=== PATIENT | male | born 1950 | race Caucasian/White ===

== ENCOUNTER 2017-07-21 15:00 | Outpatient (CLI) | payer MEDICARE, OTHER | END 2017-07-21 15:01 | disposition short-term general hospital (02) | LOC: EMS 15:00 | PROVIDERS: ATTEND Surgery | DX: R07.9 Chest pain, unspecified (principal); R06.02 Shortness of breath; R50.9 Fever, unspecified | CPT/HCPCS: A0170; A0425; A0427 ==

== ENCOUNTER 2018-04-30 10:32 | Outpatient (CLI) | payer MEDICARE, OTHER ==
[2018-04-30] MEDS ORDERED: REGADENOSON 0.4 MG/5 ML SYRINGE IVP ONE ×2 (12:18→13:47)
--- NOTE | 2018-04-30 15:42 | CARDIAC PROCEDURE NOTE ---
DATE OF SERVICE: 04/30/2018 Physician: Princess Manzanares MD, [facility] INDICATION: CAD. CARDIAC RISK FACTORS: Male gender, advanced age, family history of heart disease, hypertension, ex-smoker. There is a history of prior coronary artery disease and prior CO. SUMMARY: After signing informed consent, the patient underwent a Lexiscan pharmaceutical stress test with nuclear myocardial perfusion imaging. Resting heart rate 53, peak heart rate 66. Resting blood pressure 128/62, peak blood pressure 134/75. Lexiscan was infused per protocol. The patient developed brief and minimal chest pressure, he had no shortness of breath. BASELINE ELECTROCARDIOGRAM: Sinus bradycardia, rate 50, LAFB, left atrial enlargement, T waves flat in V4 through V6. ELECTROCARDIOGRAM AT PEAK: No new ST or T-wave changes. SUMMARY 1. Abnormal resting electrocardiogram. 2. No ischemic electrocardiogram changes by EKG criteria using pharmaceutical stress testing. 3. Nuclear images reported separately. cc: MD Ronnie Guevara M.D. TD: 04/30/2018 15:26 MTDD
--- NOTE | 2018-05-01 08:51 | Nuclear Medicine Report ---
Reason: CAD Procedure Date: 04/30/2018 Accession Number: [id number] / [id number] Procedure: NM - Myocardial Perfusion STR/RST CPT Code: FULL RESULT: EXAM: SINGLE-ISOTOPE PHARMACOLOGICAL STRESS TEST WITH REGADENOSON. SINGLE-ISOTOPE AND ONE-DAY REST/STRESS MYOCARDIAL PERFUSION SCANS WITH TOMOGRAPHIC IMAGING, QUANTITATIVE ANALYSIS, WALL MOTION ANALYSIS AND CALCULATION OF EJECTION FRACTION. EXAM DATE: 04/30/2018 06:04 PM. CLINICAL HISTORY: Coronary artery disease. COMPARISON: None available. TECHNIQUE: After the intravenous administration of 10.3 mCi of Tc-99m sestamibi, a rest myocardial perfusion scan was done with tomography. Motion correction was applied when appropriate. After an appropriate delay, pharmacological stress was performed with the infusion of 0.4 mg regadenoson per protocol. According to protocol, 44.6 mCi of Tc-99m sestamibi was injected for stress myocardial perfusion scan. Motion correction was applied when appropriate. Gated tomographic images were obtained for wall motion analysis and computation of left ventricular ejection fraction. FINDINGS: There is a small, moderate severity reversible defect in the distal anteroseptal wall. There is a larger severe partially fixed and partially reversible defect involving the inferior and inferolateral casey. Computer analysis: Summed stress score 23 Summed rest score 17 Summed difference score 4 Wall motion analysis demonstrates hypokinesis of the inferolateral wall.. The left ventricular end-diastolic volume is 106 cc. The left ventricular end-systolic volume is 50 cc. The left ventricular ejection fraction is calculated to be 53%. IMPRESSION: 1. Small reversible defect in the distal anteroseptal wall. Larger, partially fixed and partially reversible defect in the inferior and inferolateral casey. 2. Left ventricular ejection fraction of 53%. 3. Inferolateral wall hypokinesis. 4. Normal left ventricular cavity size, no change with stress. 5. Based on computer analysis, severely abnormal study with mild ischemia. RADIA
== END 2018-04-30 10:33 | disposition home or self-care (01) ==
LOC: DI 10:32
PROVIDERS: ATTEND Internal Medicine Cardiovascular Disease
DX: I25.10 Atherosclerotic heart disease of native coronary artery without angina pectoris (principal); I25.2 Old myocardial infarction; R94.31 Abnormal electrocardiogram [ECG] [EKG]; I10 Essential (primary) hypertension; Z87.891 Personal history of nicotine dependence
CPT/HCPCS: 78452; 93017; A9500; J2785

== ENCOUNTER 2018-07-17 10:54 | Outpatient (CLI) | payer MEDICARE, OTHER ==
[2018-07-17 11:11] LABS: BASOPHILS # (AUTO) 0.1 10^3/uL (0.0-0.1); BASOPHILS % (AUTO) 1.8 %; EOSINOPHILS # (AUTO) 0.2 10^3/uL (0.0-0.7); HGB - HEMOGLOBIN 17.1 g/dL (14.0-18.0); LYMPHOCYTES # (AUTO) 1.6 10^3/uL (1.5-3.5); LYMPHOCYTES % (AUTO) 20.3 %; MEAN CORPUSCULAR HEMOGLOBIN 32.5 pg (27.0-31.0); MEAN CORPUSCULAR HGB CONC 35.2 g/dL (32.0-36.0); MEAN CORPUSCULAR VOLUME 92.4 fL (80.0-94.0); MEAN PLATELET VOLUME 9.2 fL (7.4-11.4); MONOCYTES # (AUTO) 0.8 10^3/uL (0.0-1.0); NEUTROPHILS # (AUTO) 5.2 10^3/uL (1.5-6.6); NEUTROPHILS % (AUTO) 65.9 %; PLT - PLATELET COUNT 198 10^3/uL (130-450); RED BLOOD COUNT 5.25 10^6/uL (4.70-6.10); RED CELL DISTRIBUTION WIDTH 13.6 % (12.0-15.0); WHITE BLOOD COUNT 7.9 x10^3/uL (4.8-10.8)
[2018-07-17 11:15] LABS: CREATININE 1.3 mg/dL (0.6-1.2)
== END 2018-07-17 10:55 | disposition home or self-care (01) ==
LOC: LAB 10:54
PROVIDERS: ATTEND Internal Medicine Cardiovascular Disease
DX: I25.10 Atherosclerotic heart disease of native coronary artery without angina pectoris (principal)
CPT/HCPCS: 36415; 80048; 85025

== ENCOUNTER 2018-08-14 10:31 | Outpatient (CLI) | payer MEDICARE, OTHER ==
[2018-08-14 10:41] LABS: BASOPHILS # (AUTO) 0.1 10^3/uL (0.0-0.1); EOSINOPHILS # (AUTO) 0.2 10^3/uL (0.0-0.7); EOSINOPHILS % (AUTO) 2.9 %; HGB - HEMOGLOBIN 16.8 g/dL (14.0-18.0); LYMPHOCYTES # (AUTO) 1.6 10^3/uL (1.5-3.5); LYMPHOCYTES % (AUTO) 24.4 %; MEAN CORPUSCULAR HEMOGLOBIN 31.8 pg (27.0-31.0); MEAN CORPUSCULAR HGB CONC 33.7 g/dL (32.0-36.0); MEAN CORPUSCULAR VOLUME 94.6 fL (80.0-94.0); MEAN PLATELET VOLUME 9.6 fL (7.4-11.4); MONOCYTES # (AUTO) 0.6 10^3/uL (0.0-1.0); MONOCYTES % (AUTO) 9.5 %; NEUTROPHILS % (AUTO) 62.2 %; PLT - PLATELET COUNT 179 10^3/uL (130-450); RED BLOOD COUNT 5.27 10^6/uL (4.70-6.10); WHITE BLOOD COUNT 6.5 x10^3/uL (4.8-10.8)
== END 2018-08-14 10:32 | disposition home or self-care (01) ==
LOC: LAB 10:31
PROVIDERS: ATTEND Internal Medicine Cardiovascular Disease
DX: I25.10 Atherosclerotic heart disease of native coronary artery without angina pectoris (principal)
CPT/HCPCS: 36415; 85025

== ENCOUNTER 2019-12-11 12:02 | Outpatient (CLI) | payer MEDICARE, OTHER ==
[2019-12-11 15:03] LABS: BASOPHILS % (AUTO) 0.4 %; EOSINOPHILS # (AUTO) 0.1 10^3/uL (0.0-0.7); EOSINOPHILS % (AUTO) 2.2 %; HGB - HEMOGLOBIN 17.8 g/dL (14.0-18.0); LYMPHOCYTES # (AUTO) 1.5 10^3/uL (1.5-3.5); LYMPHOCYTES % (AUTO) 27.9 %; MEAN CORPUSCULAR HEMOGLOBIN 32.9 pg (27.0-31.0); MEAN CORPUSCULAR HGB CONC 34.2 g/dL (32.0-36.0); MEAN CORPUSCULAR VOLUME 96.3 fL (80.0-94.0); MEAN PLATELET VOLUME 11.8 fL (7.4-11.4); MONOCYTES # (AUTO) 0.6 10^3/uL (0.0-1.0); MONOCYTES % (AUTO) 11.9 %; NEUTROPHILS # (AUTO) 3.1 10^3/uL (1.5-6.6); NEUTROPHILS % (AUTO) 57.4 %; PLT - PLATELET COUNT 173 10^3/uL (130-450); RED BLOOD COUNT 5.41 10^6/uL (4.70-6.10); RED CELL DISTRIBUTION WIDTH 13.1 % (12.0-15.0); WHITE BLOOD COUNT 5.4 x10^3/uL (4.8-10.8)
== END 2019-12-11 12:03 | disposition home or self-care (01) ==
LOC: LAB.S 12:02
PROVIDERS: ATTEND Orthopaedic Surgery
DX: Z01.812 Encounter for preprocedural laboratory examination (principal)
CPT/HCPCS: 36415; 85025

== ENCOUNTER 2020-03-10 14:03 | Outpatient (CLI) | payer MEDICARE, OTHER ==
[2020-03-10 20:51] LABS: BASOPHILS % (AUTO) 0.6 %; EOSINOPHILS # (AUTO) 0.2 10^3/uL (0.0-0.7); EOSINOPHILS % (AUTO) 2.4 %; HGB - HEMOGLOBIN 17.5 g/dL (14.0-18.0); LYMPHOCYTES # (AUTO) 1.8 10^3/uL (1.5-3.5); LYMPHOCYTES % (AUTO) 26.2 %; MEAN CORPUSCULAR HEMOGLOBIN 31.9 pg (27.0-31.0); MEAN CORPUSCULAR HGB CONC 32.6 g/dL (32.0-36.0); MEAN PLATELET VOLUME 11.6 fL (7.4-11.4); MONOCYTES # (AUTO) 0.7 10^3/uL (0.0-1.0); MONOCYTES % (AUTO) 10.8 %; NEUTROPHILS % (AUTO) 59.7 %; PLT - PLATELET COUNT 213 10^3/uL (130-450); RED BLOOD COUNT 5.48 10^6/uL (4.70-6.10); RED CELL DISTRIBUTION WIDTH 13.4 % (12.0-15.0); WHITE BLOOD COUNT 6.7 x10^3/uL (4.8-10.8)
[2020-03-10 20:59] LABS: CALCIUM 8.8 mg/dL (8.5-10.3); CREATININE 1.3 mg/dL (0.6-1.2)
== END 2020-03-10 14:04 | disposition home or self-care (01) ==
LOC: LAB.S 14:03
PROVIDERS: ATTEND Orthopaedic Surgery
DX: Z01.812 Encounter for preprocedural laboratory examination (principal)
CPT/HCPCS: 36415; 80048; 85025

== ENCOUNTER 2021-03-02 14:21 | Outpatient (CLI) | payer MEDICARE, OTHER | END 2021-03-02 14:22 | disposition critical access hospital (66) | LOC: EMS 14:21 | DX: R42 Dizziness and giddiness (principal); H53.8 Other visual disturbances | CPT/HCPCS: A0425; A0429 ==

== ENCOUNTER 2021-03-02 15:03 | Emergency (ER) | payer MEDICARE, OTHER ==
--- NOTE | 2021-03-02 15:30 | ED Physician Documentation ---
History of Present Illness - Stated complaint Stated Complaint: DIZZINESS - Chief complaint Chief Complaint: Neuro - Additonal information Additional information: 70-year-old male presents the emergency department for evaluation of a near syn copal episode. He reports that he was simply at home and began to feel lightheaded and thought that he may pass out. The rule became very blurry to him. He is unable to quantify how long the symptoms lasted. He states he has had 2 similar episodes but again cannot quantify a timeline. He does report a history of diastolic heart failure. At baseline he has chronic lower extremity edema that he says waxes and wanes and is no significant difference from his normal. He denies that he was having chest pain or shortness of air. He denies any headache. Right now he states that he feels as good as he thinks he could. Review of Systems Constitutional: reports: Reviewed and negative Eyes: reports: Decreased vision Nose: reports: Reviewed and negative Throat: reports: Reviewed and negative Cardiac: reports: Reviewed and negative Respiratory: denies: Dyspnea, Cough GI: reports: Reviewed and negative : reports: Reviewed and negative Skin: reports: Reviewed and negative Musculoskeletal: reports: Reviewed and negative Neurologic: reports: Near syncope. denies: Syncope, Seizure, Confused, Headach e, Head injury, LOC Psychiatric: reports: Reviewed and negative PD PAST MEDICAL HISTORY - Past Medical History Cardiovascular: Hypertension, High cholesterol, Coronary artery disease, [place] Respiratory: None Endocrine/Autoimmune: None GI: None : None HEENT: None Psych: Claustrophobia Musculoskeletal: Osteoarthritis Derm: None - Past Surgical History General: Bowel surgery Ortho: Arthroscopic surgery Cardiovascular: Coronary stent, Cardiac catheterization - Present Medications Home Medications: Ambulatory Orders Medication Instructions Recorded Confirmed Colchicine [Colcrys] 0.6 mg PO ONCE PRN 01/27/13 03/02/21 Testosterone Cypionate 100 mg IM ONCE 01/27/13 03/02/21 [Depo-Testosterone] allopurinoL [Allopurinol] 300 mg PO DAILY 01/27/13 03/02/21 atenoloL [Tenormin] 50 mg PO BID 01/27/13 03/02/21 Tadalafil [Cialis] 20 mg PO DAILY 12/14/14 03/02/21 Aspirin Chewable [St [place] 81 mg PO DAILY 03/02/21 03/02/21 Aspirin] Furosemide [Lasix] 20 mg PO DAILY 03/02/21 03/02/21 - Allergies Allergies/Adverse Reactions: Allergies Allergy/AdvReac Type Severity Reaction Status Date / Time Fish Containing Products Allergy Severe anaphylaxis Verified 03/02/21 15:17 adhesive Allergy Mild Rash Verified 03/02/21 15:17 penicillin G Allergy Unknown UNKNOWN Verified 03/02/21 15:17 simvastatin Allergy Unknown UNKNOWN Verified 03/02/21 15:17 codeine [Codeine] AdvReac Intermediate UNKNOWN Verified 03/02/21 15:17 - Social History Does the pt smoke?: No Smoking Status: Never smoker Does the pt drink ETOH?: Yes Does the pt have substance abuse?: No - Immunizations Immunizations are current?: Yes PD ED PE EXPANDED - General General: Alert, No acute distress, Well developed/nourished, Other (Obese) - Neck Neck: Supple w/out meningeal sx. No: Adenopathy - Cardiac Cardiac: Regular Rate, Radial strong equal, Pedal strong equal, Cap refill < 2 sec - Respiratory Respiratory: Clear to ausultation molly. No: Distress, Labored - Abdomen Abdomen: Normal Bowel sounds, Surgical scars (Extensive surgical scarring of the abdomen. Multiple palpated hernias are easily reduced). No: Tender to palpation - Derm Derm: Normal color, Warm and dry. No: Rash - Neuro Neuro: Alert and Oriented X 3, CNII-XII intact - GCS Eye Opening: Spontaneous Motor: Obeys Commands Verbal: Oriented Total: 15 Results - Vitals Vitals: Vital Signs - 24 hr 03/02/21 15:11 Temperature 36.4 C L Heart Rate 61 Respiratory 16 Rate Blood Pressure 166/92 H O2 Saturation 100 Oxygen O2 Source Room air - EKG (time done) 1527 Rate: Rate (enter#) (59) Rhythm: NSR [place]: LAD Intervals: Normal [place]. No: Prolonged QT QRS: Normal Ischemia: Q waves (anterior) Compare to prior EKG: Unchanged from prior EKG Computer interpretation: Agree with computer - Labs Labs: Laboratory Tests 03/02/21 03/02/21 03/02/21 16:37 16:37 16:37 WBC 7.2 RBC 6.01 Hgb 19.2 H Hct 56.8 H MCV 94.5 H MCH 31.9 H MCHC 33.8 RDW 13.4 Plt Count 157 MPV 11.1 Neut # (Auto) 5.3 Lymph # (Auto) 1.2 L [place] # (Auto) 0.5 Eos # (Auto) 0.1 Baso # (Auto) 0.0 Absolute Nucleated RBC 0.00 Nucleated RBC % 0.0 PT 11.7 INR 1.1 Sodium 136 Potassium 4.2 Chloride 97 L Carbon Dioxide 27 Anion Gap 12.0 BUN 23 H Creatinine 1.3 H Estimated GFR (MDRD) 55 L Glucose 119 H Calcium 9.4 Total Bilirubin 0.9 AST 24 ALT 25 Alkaline Phosphatase 77 Troponin I High Sens B-Natriuretic Peptide Total Protein 7.6 Albumin 4.5 Globulin 3.1 Albumin/Globulin Ratio 1.5 Lipase 34 03/02/21 03/02/21 16:37 16:37 WBC RBC Hgb Hct MCV MCH MCHC RDW Plt Count MPV Neut # (Auto) Lymph # (Auto) [place] # (Auto) Eos # (Auto) Baso # (Auto) Absolute Nucleated RBC Nucleated RBC % PT INR Sodium Potassium Chloride Carbon Dioxide Anion Gap BUN Creatinine Estimated GFR (MDRD) Glucose Calcium Total Bilirubin AST ALT Alkaline Phosphatase Troponin I High Sens 9.2 B-Natriuretic Peptide 85 Total Protein Albumin Globulin Albumin/Globulin Ratio Lipase - Rads (name of study) CXR Radiology: Final report received (No acute cardiopulmonary pathology) PD MEDICAL DECISION MAKING - ED course Complexity details: reviewed results, re-evaluated patient, d/w patient ED course: Well-appearing 70-year-old male who has a history of diastolic heart failure presents the emergency department for evaluation of a near syncopal episode today. He did not faint. He reports at least 2 previous episodes in the past. A screening EKG is nonischemic. High-sensitivity troponin is negative. He has baseline mild chronic kidney disease. However of note is a fairly elevated hemoglobin of 19.2. His baseline hemoglobins have ranged from 17.5-19. There has been no apparent work-up for this pancytopenia. Patient is a former smoker though he quit more than 20 years ago he has never had a work-up for his elevated hemoglobin in the past. I have advised patient to have close follow-up with Dr. Ulloa. He would benefit from referral to a solar installer technician. He may also benefit from an outpatient Holter monitor and echocardiogram with his furniture dipper. If at any point he has worsening symptoms, develop shortness of air has fainting episodes that he is to return immediately to the ER for a second evaluation. Departure - Departure Disposition: 01 Home, Self Care Clinical Impression: Near syncope, Elevated hemoglobin Condition: Stable Record reviewed to determine appropriate education?: Yes Follow-Up: Radha Ulloa MD [Provider Admit Priv/Credential] - Comments: Osiel wolf were seen in the emergency department today for a near fainting episode. We did find that your hemoglobin was rather elevated today at 19.2. However your baseline hemoglobin seems to range between 17 and 19. It is important that you discuss this with Dr. Ulloa. You may benefit from outpatient referral to a solar installer technician or blood doctor. You may also benefit from iron testing. With regards to the near fainting episode with your history of heart failure having a follow-up echocardiogram or Holter monitor should be indicated. If at any point you have worsening symptoms, you have chest pain or feel like you are going to faint again then you should return immediately to the ER for a second evaluation.
--- NOTE | 2021-03-02 15:36 | XRAY Report ---
PROCEDURE: Chest 1 View X-Ray INDICATIONS: Chest Pain TECHNIQUE: One view of the chest was acquired. COMPARISON: 08/09/2012. FINDINGS: Surgical changes and devices: None. Lungs and pleura: No pleural effusions or pneumothorax. Lungs are clear. Mediastinum: Mediastinal contours appear normal. Heart size is normal. Bones and chest wall: No suspicious bony lesions. Overlying soft tissues appear unremarkable. IMPRESSION: No acute cardiopulmonary pathology. Reviewed by: Tony Salazar MD on 03/02/2021 3:35 PM PDT Approved by: Tony Salazar MD on 03/02/2021 3:35 PM PDT Station ID: [id number]
[2021-03-02 16:42] LABS: BASOPHILS % (AUTO) 0.4 %; EOSINOPHILS # (AUTO) 0.1 10^3/uL (0.0-0.7); EOSINOPHILS % (AUTO) 1.1 %; HCT - HEMATOCRIT 56.8 % (42.0-52.0); HGB - HEMOGLOBIN 19.2 g/dL (14.0-18.0); LYMPHOCYTES # (AUTO) 1.2 10^3/uL (1.5-3.5); LYMPHOCYTES % (AUTO) 17.2 %; MEAN CORPUSCULAR HEMOGLOBIN 31.9 pg (27.0-31.0); MEAN CORPUSCULAR HGB CONC 33.8 g/dL (32.0-36.0); MEAN CORPUSCULAR VOLUME 94.5 fL (80.0-94.0); MEAN PLATELET VOLUME 11.1 fL (7.4-11.4); MONOCYTES # (AUTO) 0.5 10^3/uL (0.0-1.0); MONOCYTES % (AUTO) 7.5 %; NEUTROPHILS # (AUTO) 5.3 10^3/uL (1.5-6.6); NEUTROPHILS % (AUTO) 73.5 %; PLT - PLATELET COUNT 157 10^3/uL (130-450); RED BLOOD COUNT 6.01 10^6/uL (4.70-6.10); RED CELL DISTRIBUTION WIDTH 13.4 % (12.0-15.0); WHITE BLOOD COUNT 7.2 x10^3/uL (4.8-10.8)
[2021-03-02 16:48] LABS: INR 1.1 (0.8-1.2); PT - PROTHROMBIN TIME 11.7 secs (9.9-12.6)
[2021-03-02 16:55] LABS: ALBUMIN 4.5 g/dL (3.2-5.5); ALBUMIN/GLOBULIN RATIO 1.5 (1.0-2.2); BILIRUBIN,TOTAL 0.9 mg/dL (0.2-1.0); CALCIUM 9.4 mg/dL (8.5-10.3); CREATININE 1.3 mg/dL (0.6-1.2); POTASSIUM 4.2 mmol/L (3.5-5.0); TOTAL PROTEIN 7.6 g/dL (6.7-8.2)
[2021-03-02 17:48] VITALS: BP 152/72
== END 2021-03-02 18:01 | disposition home or self-care (01) ==
LOC: EDUNIT# → ED 15:03
DX: R55 Syncope and collapse (principal); D58.2 Other hemoglobinopathies; Z87.891 Personal history of nicotine dependence
CPT/HCPCS: 36415; 80053; 83690; 83880; 84484; 85025; 85610; 93005; 99283; 99284

== ENCOUNTER 2021-12-11 08:00 | Outpatient (CLI) | payer MEDICARE, OTHER ==
[2021-12-11 15:42] LABS: BASOPHILS # (AUTO) 0.1 10^3/uL (0.0-0.1); BASOPHILS % (AUTO) 0.7 %; EOSINOPHILS # (AUTO) 0.2 10^3/uL (0.0-0.7); EOSINOPHILS % (AUTO) 2.9 %; HCT - HEMATOCRIT 55.5 % (42.0-52.0); LYMPHOCYTES # (AUTO) 2.2 10^3/uL (1.5-3.5); LYMPHOCYTES % (AUTO) 30.5 %; MEAN CORPUSCULAR HEMOGLOBIN 32.4 pg (27.0-31.0); MEAN CORPUSCULAR HGB CONC 34.2 g/dL (32.0-36.0); MEAN CORPUSCULAR VOLUME 94.5 fL (80.0-94.0); MEAN PLATELET VOLUME 12.2 fL (7.4-11.4); MONOCYTES # (AUTO) 0.7 10^3/uL (0.0-1.0); MONOCYTES % (AUTO) 9.1 %; NEUTROPHILS # (AUTO) 4.2 10^3/uL (1.5-6.6); NEUTROPHILS % (AUTO) 56.5 %; PLT - PLATELET COUNT 159 10^3/uL (130-450); RED BLOOD COUNT 5.87 10^6/uL (4.70-6.10); RED CELL DISTRIBUTION WIDTH 13.4 % (12.0-15.0); WHITE BLOOD COUNT 7.4 x10^3/uL (4.8-10.8)
[2021-12-11 15:58] LABS: ALBUMIN 4.1 g/dL (3.2-5.5); ALBUMIN/GLOBULIN RATIO 1.4 (1.0-2.2); ALKALINE PHOSPHATASE 83 IU/L (42-121); ALT ALANINE AMINOTRANSFERASE 31 IU/L (10-60); AST ASPARTATE AMINOTRANSFERASE 28 IU/L (10-42); BUN - BLOOD UREA NITROGEN 26 mg/dL (6-20); CALCIUM 9.4 mg/dL (8.5-10.3); CARBON DIOXIDE - CO2 27 mmol/L (21-32); CHLORIDE 99 mmol/L (101-111); CHOL/HDL RATIO 4.3 (<5.0); CHOLESTEROL 169 mg/dL; CREATININE 1.4 mg/dL (0.6-1.2); GFR - MDRD 50 (>89); GLUCOSE 119 mg/dL (70-100); HDL CHOLESTEROL 39 mg/dL; LDL CHOLESTEROL,CALCULATED 94 mg/dL; LDL/HDL RATIO 2.4 (<3.6); POTASSIUM 3.9 mmol/L (3.5-5.0); SODIUM 134 mmol/L (135-145); TRIGLYCERIDES 182 mg/dL; URIC ACID 9.4 mg/dL (2.6-7.2); VLDL CHOLESTEROL 36 mg/dL
[2021-12-11 16:06] LABS: PSA TOTAL 0.537 ng/mL (0.000-2.000)
[2021-12-11 18:54] LABS: ESTIMATED AVERAGE GLUCOSE 134 mg/dL (70-100); HEMOGLOBIN A1c% 6.3 % (4.27-6.07)
== END 2021-12-11 23:59 | disposition home or self-care (01) ==
LOC: LAB.R 08:00
PROVIDERS: ATTEND Internal Medicine
DX: Z00.00 Encounter for general adult medical examination without abnormal findings (principal); I13.0 Hypertensive heart and chronic kidney disease with heart failure and stage 1 through stage 4 chronic kidney disease, or unspecified chronic kidney disease; I50.30 Unspecified diastolic (congestive) heart failure; N18.9 Chronic kidney disease, unspecified; R73.9 Hyperglycemia, unspecified; I25.10 Atherosclerotic heart disease of native coronary artery without angina pectoris; K57.92 Diverticulitis of intestine, part unspecified, without perforation or abscess without bleeding; K29.70 Gastritis, unspecified, without bleeding; M10.9 Gout, unspecified; H91.90 Unspecified hearing loss, unspecified ear; E29.1 Testicular hypofunction; M19.90 Unspecified osteoarthritis, unspecified site; Z86.010 Personal history of colon polyps
CPT/HCPCS: 80053; 80061; 83036; 83721; 84153; 84403; 84443; 84550; 85025

== ENCOUNTER 2022-06-14 06:15 | Day surgery (SDC) | payer MEDICARE, OTHER ==
[2022-06-14] MEDS ORDERED: LACTATED RINGERS 1,000 ML IV ONE (07:09)
[2022-06-14] MEDS ORDERED: PROPOFOL 500 MG/50 ML 500 MG/50 ML VIAL ONE (07:47)
[2022-06-14] MEDS ORDERED: LACTATED RINGERS 800 ML IV ONE (08:22)
--- NOTE | 2022-06-14 08:24 | ANESTHESIA POST OP EVALUATION ---
Anesthesia Post Eval - Post Anesthesia Eval Vitals: Last Vital Signs Temp 36.1 C L 06/14/22 08:18 Pulse 62 06/14/22 08:18 Resp 16 06/14/22 08:18 BP 126/54 L 06/14/22 08:18 Pulse Ox 97 06/14/22 08:18 O2 Flow Rate CV Function Including HR & BP: Stable Pain Control: Satisfactory Nausea & Vomiting: Negative Mental Status: Baseline Respiratory Status: Airway Patent Hydration Status: Satisfactory Anesthesia Complications: None
--- NOTE | 2022-06-14 08:24 | ANESTHESIA ---
Pre-Anesthesia VS, & Labs - Diagnosis hx of colon resection , diverticultis - Procedure colonoscopy Vital Signs: Temp Pulse Resp BP Pulse Ox O2 Flow Rate 36.1 C L 62 16 126/54 L 97 06/14/22 08:18 06/14/22 08:18 06/14/22 08:18 06/14/22 08:18 06/14/22 08:18 Height: 6 ft Weight (kg): 137.6 kg Body Mass Index: 41.1 BMI Classification: Morbidly Obese - NPO >8 hours Home Medications and Allergies Home Medications: Ambulatory Orders Ezetimibe [Zetia] 10 mg PO DAILY 06/13/22 Colchicine [Colcrys] 0.6 mg PO ONCE PRN 01/27/13 Testosterone Cypionate [Depo-Testosterone] 100 mg IM ONCE 01/27/13 allopurinoL [Allopurinol] 150 mg PO DAILY 01/27/13 atenoloL [Tenormin] 25 mg PO BID 01/27/13 Tadalafil [Cialis] 10 mg PO DAILY 12/14/14 Furosemide [Lasix] 20 mg PO DAILY 03/02/21 Ezetimibe [Zetia] 10 mg PO DAILY 06/13/22 Allergies/Adverse Reactions: Allergies Allergy/AdvReac Type Severity Reaction Status Date / Time Fish Containing Products Allergy Severe anaphylaxis Verified 03/02/21 15:17 adhesive Allergy Mild Rash Verified 06/14/22 07:56 penicillin G Allergy Unknown UNKNOWN Verified 06/14/22 07:56 simvastatin Allergy Unknown UNKNOWN Verified 06/14/22 07:56 codeine [Codeine] AdvReac Intermediate UNKNOWN Verified 06/14/22 07:56 lactose AdvReac Unknown Verified 06/13/22 12:19 Anes History & Medical History - Anesthetic History Anesthesia Complications: reports: No previous complications Family history of Anesthesia Complications: Denies Family history of Malignant Hyperthermia: Denies - Medical History Cardiovascular: reports: Hypertension, High cholesterol, Coronary artery disease, [place] Pulmonary: reports: Shortness of breath Gastrointestinal: reports: Ulcers, Colon polyps, Diverticulitis, Other Urinary: reports: None Musculoskeletal: reports: Osteoarthritis, Fatigue Endocrine/Autoimmune: reports: None Blood Disorders: reports: None Skin: reports: None Smoking Status: Never smoker - Surgical History General: reports: Bowel surgery, Colonoscopy Cardiothoracic: reports: Coronary stent Orthopedic: reports: Hip replacement, Knee replacement, Arthroscopic surgery Exam General: Alert, Oriented x3, Cooperative Dental: WNL Mouth Openin Fingerbreadth Neck Mobility: Normal Mallampati classification: III Thyromental Distance: 4-6 cm Respiratory: Lungs clear Cardiovascular: Regular rate Plan Anesthesia Type: General, Total IV Consent for Procedure(s) Verified and Reviewed: Yes Code Status: Attempt Resuscitation ASA classification: 3-Severe systemic disease Is this case an emergency?: No
[2022-06-14 09:00] VITALS: BP 133/65
== END 2022-06-14 06:16 | disposition home or self-care (01) ==
LOC: SDS 06:15
PROVIDERS: ATTEND Surgery
PROC: 0DBH8ZZ Excision of Cecum, Via Natural or Artificial Opening Endoscopic (ICD-10-PCS; 2022-06-14)
PROC: 0DBK8ZZ Excision of Ascending Colon, Via Natural or Artificial Opening Endoscopic (ICD-10-PCS; principal; 2022-06-14 07:30)
DX: Z12.11 Encounter for screening for malignant neoplasm of colon (principal); D12.0 Benign neoplasm of cecum; D12.2 Benign neoplasm of ascending colon; K57.30 Diverticulosis of large intestine without perforation or abscess without bleeding; I13.0 Hypertensive heart and chronic kidney disease with heart failure and stage 1 through stage 4 chronic kidney disease, or unspecified chronic kidney disease; I50.30 Unspecified diastolic (congestive) heart failure; N18.9 Chronic kidney disease, unspecified; E66.01 Morbid (severe) obesity due to excess calories; Z68.41 Body mass index [BMI] 40.0-44.9, adult; I25.10 Atherosclerotic heart disease of native coronary artery without angina pectoris; I25.2 Old myocardial infarction
CPT/HCPCS: 45385; J7120

== ENCOUNTER 2022-11-25 02:49 | Outpatient (CLI) | payer MEDICARE, OTHER | END 2022-11-25 23:59 | disposition E | LOC: EMS 02:49 | DX: I46.9 Cardiac arrest, cause unspecified (principal) | CPT/HCPCS: A0425; A0428 ==